=== PATIENT | female | born 1970 | race American Indian/Alaskan Native ===

== ENCOUNTER 2017-10-02 11:18 | Emergency (ER) | payer OTHER ==
[2017-10-02 11:28] VITALS: BP 129/72
[2017-10-02] MEDS ORDERED: NORCO 5/325 PO ONE (15:43)
--- NOTE | 2017-10-02 15:44 | Emergency Department Report ---
Blank Doc - Documentation Documentation: Patient is a 46-year-old [place]ag[place] female who is presenting with lower abdominal pain. Patient's pain has been present for possibly 4 days. Patient states there is some radiation to the lower back. Patient's states that there is no dysuria or urinary frequency diarrhea nausea vomiting or fever at this time. Patient states pain is 8 out of 10 in severity. Patient will have urinalysis and test performed as well as a KUB.
--- NOTE | 2017-10-02 19:03 | XRay Report ---
FINAL REPORT EXAM: XR ABDOMEN 1V AP HISTORY: abd pain TECHNIQUE: Supine abdomen PRIORS: None. FINDINGS: Moderate amount of stool and gas present within the colon. No evidence of colonic or small bowel dilatation. No signs of free air. No abnormal calcifications are identified. IMPRESSION: Nonobstructive bowel gas pattern. No acute abnormality seen.
[2017-10-02 19:26] LABS: HCG Qualitative,Urine Negative (Negative)
[2017-10-02 19:28] LABS: Bacteria,Urine 1+ /HPF (Negative); Bilirubin,Urine NEG (Negative); Blood,Urine MOD (Negative); Color,Urine Yellow (Yellow); Mucus,Urine 3+ /HPF; Urobilinogen,Urine < 2.0 mg/dL (<2.0)
--- NOTE | 2017-10-02 19:35 | Emergency Department Report ---
ED Abdominal Pain HPI - General Chief Complaint: Abdominal Pain Stated Complaint: DIZZY/ABD PAIN/VAG BLEED Time Seen by Provider: 10/02/17 15:10 Source: patient Mode of arrival: Ambulatory Limitations: No Limitations - History of Present Illness Initial Comments: Patient is a 46-year-old [place] female who is presenting with lower abdominal pain. Patient's pain has been present for possibly 4 days. Patient states there is some radiation to the lower back. Patient's states that there is no dysuria or urinary frequency diarrhea nausea vomiting or fever at this time. Patient states pain is 8 out of 10 in severity. Severity scale (0 -10): 10 - Related Data Previous Rx's Medication Instructions Recorded Last Taken Type Acetaminophen [Acetaminophen TAB] 650 mg PO Q4H PRN #120 tablet 03/10/16 Unknown Rx Ferrous Gluconate 240 mg PO BID #60 tablet 03/10/16 Unknown Rx Metoprolol [Lopressor TAB] 12.5 mg PO BID #60 tablet 03/10/16 Unknown Rx Ciprofloxacin HCl [Cipro] 500 mg PO BID #14 tablet 10/02/17 Unknown Rx Ondansetron [Zofran ODT TAB] 4 mg PO Q8HR #10 tab.rapdis 10/02/17 Unknown Rx Phenazopyridine [Pyridium] 100 mg PO TID #12 tab 10/02/17 Unknown Rx oxyCODONE /ACETAMINOPHEN [Percocet 1 tab PO Q6HR PRN #10 tablet 10/02/17 Unknown Rx 5/325 mg] Allergies Allergy/AdvReac Type Severity Reaction Status Date / Time No Known Allergies Allergy Verified 10/02/17 11:24 ED Review of Systems ROS: Stated complaint: DIZZY/ABD PAIN/VAG BLEED Other details as noted in HPI Comment: All other systems reviewed and negative ED Past Medical Hx - Past Medical History Hx Hypertension: Yes Hx Heart Attack/AMI: Yes Hx Congestive Heart Failure: No (?) Hx Diabetes: No Hx Deep Vein Thrombosis: No Hx Pulmonary Embolism: No Hx GERD: No Hx Liver Disease: No Hx Renal Disease: No Hx Sickle Cell Disease: No Hx Arthritis: No Hx Headaches / Migraines: No Hx Seizures: No Hx Kidney Stones: No Hx Asthma: No Hx COPD: No Hx Tuberculosis: No Hx Dementia: No Hx HIV: No Additional medical history: FibroidS. ANEMIA - Surgical History Past Surgical History?: No Hx Coronary Stent: No Hx Open Heart Surgery: No Hx Pacemaker: No Hx Internal Defibrillator: No Hx Cholecystectomy: No Hx Appendectomy: No Hx Breast Surgery: No - Social History Smoking Status: Never Smoker Substance Use Type: None - Medications Home Medications: Home Medications Medication Instructions Recorded Confirmed Last Taken Type Acetaminophen [Acetaminophen TAB] 650 mg PO Q4H PRN #120 tablet 03/10/16 Unknown Rx Ferrous Gluconate 240 mg PO BID #60 tablet 03/10/16 Unknown Rx Metoprolol [Lopressor TAB] 12.5 mg PO BID #60 tablet 03/10/16 Unknown Rx Ciprofloxacin HCl [Cipro] 500 mg PO BID #14 tablet 10/02/17 Unknown Rx Ondansetron [Zofran ODT TAB] 4 mg PO Q8HR #10 tab.rapdis 10/02/17 Unknown Rx Phenazopyridine [Pyridium] 100 mg PO TID #12 tab 10/02/17 Unknown Rx oxyCODONE /ACETAMINOPHEN [Percocet 1 tab PO Q6HR PRN #10 tablet 10/02/17 Unknown Rx 5/325 mg] ED Physical Exam - General Limitations: No Limitations General appearance: alert, in no apparent distress - Head Head exam: Present: atraumatic, normocephalic - Eye Eye exam: Present: normal appearance - ENT ENT exam: Present: mucous membranes moist - Neck Neck exam: Present: normal inspection - Respiratory Respiratory exam: Present: normal lung sounds bilaterally. Absent: respiratory distress, wheezes, rales - Cardiovascular Cardiovascular Exam: Present: regular rate, normal rhythm. Absent: systolic murmur, diastolic murmur, rubs, gallop - GI/Abdominal GI/Abdominal exam: Present: soft, tenderness (suprapubic tenderness), normal bowel sounds. Absent: distended, guarding, rebound - Extremities Exam Extremities exam: Present: normal inspection - Back Exam Back exam: Present: normal inspection - Neurological Exam Neurological exam: Present: alert, oriented X3 - Psychiatric Psychiatric exam: Present: normal affect, normal mood - Skin Skin exam: Present: warm, dry, intact, normal color. Absent: rash ED Course Vital Signs 10/02/17 11:24 Temperature 99.2 F Pulse Rate 116 H Respiratory 18 Rate Blood Pressure 129/72 O2 Sat by Pulse 100 Oximetry ED Medical Decision Making - Lab Data Lab Results 10/02/17 Range/Units 19:04 Urine Color Yellow (Yellow) Urine Turbidity Clear (Clear) Urine pH 5.0 (5.0-7.0) Ur Specific [place] 1.027 (1.003-1.030) Urine Protein 100 mg/dl (Negative) mg/dL Urine Glucose (UA) Neg (Negative) mg/dL Urine Ketones Tr (Negative) mg/dL Urine Blood Mod (Negative) Urine Nitrite Neg (Negative) Ur Reducing Substances Not Reportable Urine Bilirubin Neg (Negative) Urine Ictotest Not Reportable Urine Urobilinogen < 2.0 (<2.0) mg/dL Ur Leukocyte Esterase Mod (Negative) Urine WBC (Auto) 60.0 H (0.0-6.0) /HPF Urine RBC (Auto) 25.0 (0.0-6.0) /HPF U Epithel Cells (Auto) 37.0 H (0-13.0) /HPF Urine Bacteria (Auto) 1+ (Negative) /HPF Urine Mucus 3+ /HPF Urine HCG, Qual Negative (Negative) - Radiology Data interpreted by me: Abdominal x-ray shows a nonobstructive bowel gas pattern - Medical Decision Making Patient will be treated for urinary tract infection with Cipro and given pain meds be discharged home. Critical care attestation.: If time is entered above; I have spent that time in minutes in the direct care of this critically ill patient, excluding procedure time. ED Disposition Clinical Impression: Acute cystitis Qualifiers: Hematuria presence: with hematuria Qualified Code(s): N30.01 - Acute cystitis with hematuria Disposition: TO HOME OR SELFCARE Is pt being admited?: No Does the pt Need Aspirin: No Condition: Stable Instructions: Urinary Tract Infection in Women (ED) Prescriptions: Ciprofloxacin HCl [Cipro] 500 mg PO BID #14 tablet Ondansetron [Zofran ODT TAB] 4 mg PO Q8HR #10 tab.rapdis oxyCODONE /ACETAMINOPHEN [Percocet 5/325 mg] 1 tab PO Q6HR PRN #10 tablet PRN Reason: Pain Phenazopyridine [Pyridium] 100 mg PO TID #12 tab Referrals: PRIMARY CARE, [Primary Care Provider] - 3-5 Days
== END 2017-10-02 19:45 | disposition home or self-care (01) ==
LOC: ED 11:18
DX: N30.00 Acute cystitis without hematuria (principal); I10 Essential (primary) hypertension; I25.2 Old myocardial infarction
CPT/HCPCS: 74018; 81001; 81025; 99283